=== PATIENT | male | born 1965 | race Caucasian/White ===

== ENCOUNTER 2022-05-25 07:25 | Emergency (ER) | payer SELFPAY ==
[2022-05-25] VITALS (7 sets, daily range): BP systolic 120–131; BP diastolic 63–70; PULSE 68–76; RESP 18–19; TEMP 36.6; O2SAT 97–98; BMI 24.4
--- NOTE | 2022-05-25 07:57 | ED.EXTPRO ---
HPI - Extremity Problem General Chief complaint: Extremity Problem,Nontraumatic Stated complaint: foot pain homeless Time Seen by Provider: 05/25/22 07:40 Source: patient Mode of arrival: EMS Limitations: no limitations History of Present Illness HPI Narrative: Patient is a 56-year-old male. He is homeless. He states that yesterday he picked up some new boots that were not the proper size for him. He wore them yesterday without any socks. He states that he walked further them what he should have and slept outside last night where did become quite cold into the lower 40s an upper 30s. He states that because he was walking and that the boots did not fit properly his feet became increasingly sore and increasingly cold. He was unable to get up and walk and make it to the bathroom and so he did soil himself. He is covered in feces to include his feet. He states that both of his feet are sore particularly on the toes and on the bottom of his left foot. He denies any specific trauma. He did not fall or hit his feet on anything. He could not walk this morning because of the discomfort which is why he contacted EMS bring him in. Related Data Previous Rx's Medication Instructions Recorded hydrocodone 5 mg-acetaminophen 325 1 - 2 tab PO Q6HP PRN #15 tabs 06/19/16 mg tablet ([place]) ibuprofen 600 mg tablet 600 mg PO Q6HP PRN #20 tabs 06/19/16 tamsulosin 0.4 mg capsule (Flomax) 0.4 mg PO QDAY #5 caps 06/19/16 Allergies Allergy/AdvReac Type Severity Reaction Status Date / Time No Known Allergies Allergy Uncoded 05/18/17 12:54 Review of Systems Constitutional Constitutional: Reports system reviewed and no additional complaints, except as documented Musculoskeletal Musculoskeletal: Reports system reviewed and no additional complaints, except as documented Integumentary/Breasts Skin/Breast: Reports system reviewed and no additional complaints, except as documented Neurologic Neurologic: Reports system reviewed and no additional complaints, except as documented Hematologic/Lymphatic On Anticoagulants: No Exam Initial Vital Signs Initial Vital Signs: Vital Signs Temperature 97.9 F 05/25/22 07:38 Pulse Rate 68 05/25/22 07:38 Respiratory Rate 18 05/25/22 07:38 Blood Pressure 128/70 05/25/22 07:38 Pulse Oximetry 97 05/25/22 07:38 Oxygen Delivery Method Room Air 05/25/22 07:38 HENMT Head: normal to inspection and normocephalic Resp Effort & Inspection: normal respiratory effort Cardio Pulses: dorsalis pedis present bilaterally Skin Other: Toes both of his feet are white in appearance does have some white skin on the ball of his left foot. Neuro Other: Sensation is intact by touch but it is exquisitely tender. Extrem Other: The left t toes are cold to include the midfoot. Right toes are warm. His feet are covered with feces. Patient is able to move his ankles. Course Orders Ordered: ED Orders 05/25/22 09:45 Consult to TROUBLE LOCATER - Box Office Attendant Stat Vital Signs Vital signs: Vital Signs - 8 hr 05/25/22 07:38 05/25/22 09:09 05/25/22 09:10 Temperature 97.9 F Pulse Rate 68 76 Respiratory Rate 18 Blood Pressure 128/70 128/70 Pulse Oximetry 97 98 Oxygen Delivery Method Room Air Oxygen Flow Rate 05/25/22 09:10 05/25/22 09:15 05/25/22 09:15 Temperature Pulse Rate 73 71 Respiratory Rate Blood Pressure 128/70 Pulse Oximetry 97 98 Oxygen Delivery Method Oxygen Flow Rate 05/25/22 09:30 05/25/22 09:30 05/25/22 13:27 Temperature Pulse Rate 68 72 Respiratory Rate Blood Pressure 131/70 120/63 Pulse Oximetry 98 98 Oxygen Delivery Method Room Air Oxygen Flow Rate 05/25/22 14:14 Temperature Pulse Rate 68 Respiratory Rate 19 Blood Pressure 124/64 Pulse Oximetry 97 Oxygen Delivery Method Room Air Oxygen Flow Rate 98.3 MDM - Extremity (Nontraumatic) MDM Narrative Medical decision making narrative: Patient did have what appeared to be a degree of frostbite on both of his feet upon arrival. He was also covered in feces because he was not able to get up and walk this morning because of the discomfort. We were able to get him cleaned up. He did take shower. We warmed his feet. His capillary refill improved. He did have good dorsalis pedis pulses. The color returned to his feet. His feet became warm. His discomfort improved. He was able to get up and walk. I have low suspicion for fractures. We will hold on any radiologic studies. I suspect that he had a degree of frostbite more consistent with diaz nip did discuss this with him. No indication for admission to the hospital given the improvement of his symptoms. He was informed that he does need to keep his feet warm specifically over the next couple days. He was given return precautions. He expressed understanding and agreement. Discharge Plan Departure Patient Disposition: Home Clinical Impression: Cold injury Instructions: DI for Frostbite, Winter Warning: Tips for Preventing Frostbite and Hypothermia Activity Restrictions/Additional Instructions: You do need to try to keep your feet as warm as possible especially for the next several days. Please return to the emergency department for new or worsening symptoms. Prescriptions: No Action hydrocodone-acetaminophen [[place]] 5 MG/325 MG tablet 1 - 2 tab PO Q6HP PRNQty: 15 0RF tamsulosin [Flomax] 0.4 MG capsule,extended release 24hr 0.4 mg PO QDAY Qty: 5 0RF ibuprofen 600 MG tablet 600 mg PO Q6HP PRNQty: 20 0RF Referrals: Miscellaneous,Doctor, MD [Primary Care Provider] - Stand Alone Forms: Patient Portal/API
--- NOTE | 2022-05-25 09:13 | PC.NURSE ---
Pt appears to have exposure injury to both feet. He is homeless, sleeps outdoors, has no socks and walked several miles yesterday in new boots that may be too tight. Tops of both feet are blanched white and the pad of the left foot is swollen and a little yellowish in appearance. Painful to palpation and difficult to stand. Pt took a long shower to slowly warm up his feet as well as cleanse his body and hair. Warm blankets applied to body & feet.
== END 2022-05-25 14:14 | disposition home or self-care (01) ==
PROVIDERS: Emergency Provider Emergency Medicine
DX: T33.822A Superficial frostbite of left foot, initial encounter (principal); T33.821A Superficial frostbite of right foot, initial encounter; X31.XXXA Exposure to excessive natural cold, initial encounter
CPT/HCPCS: 99281